=== PATIENT | female | born 1985 | race African-American/Black ===

== ENCOUNTER 2016-05-15 09:14 | Emergency (ER) | payer OTHER ==
[~2016-05-15] VITALS: Ht 157.5 cm; Wt 77.1 kg
--- NOTE | ~2016-05-15 | EKG ---
[address] [place] [address] ELECTROCARDIOGRAM REPORT Name: YUKO LEYVA JAY OSUNA Room #: DEP Raine#: [id number] Admission: 05/15/16 Attend Phys: Discharge: 05/15/16 Date of : 87 Report #: [id number] THIS REPORT FOR: //name// [facility] ED Test Date: 2016-05-15 Test Time: 09:10:31 Pat Name: YUKO LEYVA Department: Room: Gender: F [employer]ake [employer] Notcher: [id number] : 1985 Requested By: Pao Garcia Order Number: [id number] MD: Rubin Mosley Measurements Intervals [place] Rate: 102 P: 49 OK: 133 QRS: 36 QRSD: 68 T: 39 QT: 299 QTc: 390 Interpretive Statements Sinus tachycardia No previous ECG available for comparison Electronically Signed On 05-15-2016 16:47:08 SENIOR COMPENSATION ANALYST by Rubin Mosley [email or web address] <ELECTRONICALLY SIGNED> By: Rubin Mosley MD 05/15/16 1647 0910 0910 Rubin Mosley MD /EPI
[~2016-05-15 09:14] MED LIST: APAP500 PO; BACTRIM DS TAB1 EACH PO; CIPROFLOXACIN500 M1 PO; IBUPROFEN 600600 M1 PO; IBUPROFEN 800800 M1 PO; MEDROL DOSPAK21 TA1 PO; MIRENA1 EACH IY; NAPROSYN500 MG PO; NO HOME MEDS; NOHOMEMEDICATIONS; NORCO 5-325 TA1 EACH PO; TRAMADOL 50 MG50 MG PO; ULTRAM 50MG TAB50 MG PO; VITAFOL-OB+DHA1 EACH PO; denies any meds
[2016-05-15 09:44] LABS: HEMATOCRIT 39.2 % (37.0-47.0); HEMOGLOBIN 13.3 gm/dL (12.0-15.0); MCH 26.7 pg (26.0-34.0); MCHC 33.8 % (28.0-37.0); MCV 78.9 fL (80.0-100.0); PLATELET COUNT 277 thou/uL (150-400); RBC 4.97 mil/uL (4.20-5.00); RDW 13.6 % (10.5-14.5)
[2016-05-15 09:46] LABS: URINE BILIRUBIN NEGATIVE (Negative); URINE BLOOD 1+ (Negative); URINE COLOR YELLOW; URINE GLUCOSE-RANDOM* NEGATIVE (Negative); URINE KETONES NEGATIVE (Negative); URINE NITRITE NEGATIVE (Negative); URINE PROTEIN (DIPSTICK) TRACE (Negative); URINE UROBILINOGEN 0.2 E.U./dl (0.2-1.0)
[2016-05-15 09:48] LABS: MANUAL DIFF YES
[2016-05-15 09:53] LABS: CALCIUM 9.3 mg/dL (8.5-10.1); CREATININE 0.8 mg/dL (0.6-1.3); POTASSIUM 3.5 mmol/L (3.5-5.1)
[2016-05-15 10:08] LABS: ALBUMIN 3.8 g/dL (3.4-5.0); TOTAL BILIRUBIN 0.8 mg/dL (<0.1-1.0); TOTAL PROTEIN 8.4 g/dL (6.4-8.2)
[2016-05-15 10:11] LABS: BACTERIA 1-9 Few /HPF (None Seen); CASTS None Seen /LPF (None Seen); CRYSTALS None Seen /LPF (None Seen); SQUAMOUS >10 Many /LPF (0-3); URINE RBC 0-2 Rare /HPF (0-2); URINE WBC 0-5 Rare /HPF (0-5)
[2016-05-15 10:45] LABS: ABSOLUTE NEUTROPHILS 16.6 thou/uL (1.4-8.2); PLATELET ESTIMATE NORMAL; TOTAL CELL COUNT 100
[2016-05-15] MEDS ORDERED: AZITHROMYCIN 2250 MG PO (12:17)
[2016-05-15] MEDS ORDERED: TESSALON PERLE100 MG PO (12:17)
[2016-05-15] MEDS ORDERED: IBUPROFEN 600600 M1 PO (12:17)
[2016-05-15 12:53] VITALS: BP 110/65
== END 2016-05-15 12:55 | disposition home or self-care (01) ==
LOC: ER 09:14
PROVIDERS: Physician Assistant
DX: J18.9 Pneumonia, unspecified organism (principal); R94.5 Abnormal results of liver function studies; D72.829 Elevated white blood cell count, unspecified; R53.1 Weakness; J45.909 Unspecified asthma, uncomplicated; Z88.8 Allergy status to other drugs, medicaments and biological substances

== ENCOUNTER 2016-09-26 20:38 | Emergency (ER) | payer OTHER ==
[~2016-09-26] VITALS: Ht 157.5 cm; Wt 74.8 kg
[~2016-09-26 20:38] MED LIST changes: +AZITHROMYCIN 2250 MG PO; +TESSALON PERLE100 MG PO
[2016-09-26] MEDS ORDERED: ALEVE220 MG PO (21:24)
[2016-09-26 21:30] VITALS: BP 122/66
== END 2016-09-26 21:31 ==
LOC: ER 20:38
DX: E11.42 Type 2 diabetes mellitus with diabetic polyneuropathy (principal); J45.909 Unspecified asthma, uncomplicated; Z88.8 Allergy status to other drugs, medicaments and biological substances